=== PATIENT | female | born 1970 | race Caucasian/White ===

== ENCOUNTER → 2018-08-08 | Outpatient (CLI) | payer OTHER ==
[2018-08-08 09:03] LABS: Basophils # (A) 0.1 k/uL (0-0.2); Basophils % (A) 1 %; Eosinophils # (A) 0.3 k/uL (0-0.7); Eosinophils % (A) 5 %; HCT 42.6 % (34.0-46.0); HGB 13.5 gm/dL (11.4-16.0); Lymphocytes # (A) 2.2 k/uL (1.0-4.8); Lymphocytes % (A) 29 %; MCH 29.2 pg (25.0-35.0); MCHC 31.7 g/dL (31.0-37.0); MCV 91.9 fL (80.0-100.0); Mean Platelet Volume 8.2; Monocytes # (A) 0.6 k/uL (0-1.0); Monocytes % (A) 8 %; Neutrophils # (A) 4.1 k/uL (1.3-7.7); Neutrophils % (A) 55 %; Platelet Count 190 k/uL (150-450); RBC 4.63 m/uL (3.80-5.40); RDW 13.8 % (11.5-15.5); WBC 7.4 k/uL (3.8-10.6)
== END | disposition home or self-care (01) ==
LOC: LABPAT 08:15
PROVIDERS: ATTEND Obstetrics & Gynecology
DX: Z01.818 Encounter for other preprocedural examination (principal); I10 Essential (primary) hypertension; N92.0 Excessive and frequent menstruation with regular cycle; N84.0 Polyp of corpus uteri; Z01.812 Encounter for preprocedural laboratory examination
CPT/HCPCS: 36415; 85025; 93005

== ENCOUNTER 2018-08-24 07:51 | Day surgery (SDC) | payer OTHER ==
[2018-08-14 11:17] VITALS: BMI 36.6
--- NOTE | 2018-08-20 11:40 | HP ---
HISTORY AND PHYSICAL DATE OF SURGERY: 08/24/2018 This is a 48-year-old white female 2, para 2-0-0-2 who presents for NovaSure endometrial ablation for heavy crampy menses. Endometrial biopsy in the office revealed benign tissue, with fragments of endometrial polyps. For this reason, she is electing D and C and polypectomy as well. She has had a previous tubal ligation. Menses are long, and heavy. She uses [id number] medications as needed for cramping. PAST MEDICAL HISTORY: Significant for hypertension. PAST SURGICAL HISTORY: sections x2, colposcopy in the office, tubal ligation. CURRENT MEDICATIONS: Metoprolol daily. ALLERGIES: None known. FAMILY HISTORY: Significant for hyperlipidemia and diabetes. SOCIAL HISTORY: Patient is . She has never been a smoker. She works at a local [employer]. PHYSICAL EXAMINATION: This is a pleasant white female who is 5 feet 5 inches, 231 pounds, BMI of 38, blood pressure 120/80. HEENT exam reveals no thyromegaly, good dentition, no obvious lymphadenopathy. Chest is clear to auscultation in all rodrigues anteriorly and posteriorly. Cardiac exam reveals regular rate and rhythm with no murmur, click, or rub. Abdomen is soft, moderately obese, active bowel sounds, nontender. The breast exam reveals breasts to be bilaterally symmetric to inspection, no skin dimpling, nipple discharge, or axillary adenopathy. Extremities reveal no edema, good peripheral pulses. On pelvic exam, the cervix is long and closed, recent colposcopic evaluation is consistent with low-grade MALINDA. Uterus is small, mobile, anteverted, anteflexed, nontender and smooth. Adnexa are negative to bilateral palpation. Rectal exam reveals good tone, FIT negative stool. IMPRESSION: Hypermenorrhea and dysmenorrhea, office endometrial sampling consistent with benign endometrial polyps. PLAN: We will proceed with hysteroscopy, D and C, polypectomy, and NovaSure endometrial ablation. The risks, benefits, and alternatives have all been discussed in detail. The patient understands the risks of anesthesia as well, aspiration, or nerve damage. Perforation or damage to the cervix, uterus, or any pelvic or abdominal organs is also discussed in detail. Patient understands the risks and is choosing to proceed as above. MMODL / IJN: [id number] /
[~2018-08-24 07:51] MED LIST: DEXAMETHASONE SOD PHOSPHATE 10 MG/ML 1 ML VIAL IV ONE; HYDROmorphone 0.5 MG/0.5 ML SYRINGE IVP PRN; LACTATED RINGERS 1,000 ML IV SCH; MIDAZOLAM (PF) 2 MG/2 ML VIAL IV PRN; ONDANSETRON 4 MG/2 ML VIAL IVP ONE; Pre Op ABX Message 1 EACH MISC MISCELLANE ONE; SCOPOLAMINE 1.5MG/72HR PATCH TRANSDERM ONE
[2018-08-24] MEDS ORDERED: LIDOCAINE 1% 20 ML VIAL (10MG/ML) FOR IV START INTRADERMA ONE (08:20)
[2018-08-24] MEDS ORDERED: PROPOFOL 10 MG/ML 20 ML VIAL IV ONE (09:24)
[2018-08-24] MEDS ORDERED: fentaNYL (PF) 50 MCG/ML 2 ML AMP ONE (09:24)
[2018-08-24] MEDS ORDERED: MIDAZOLAM 2 MG/2 ML VIAL ONE (09:24)
[2018-08-24] MEDS ORDERED: LIDOCAINE 1% INJ 10MG/ML (20 ML MDV) ONE (09:24)
[2018-08-24] MEDS ORDERED: KETOROLAC 30 MG/ML 1 ML VIAL ONE (09:24)
--- NOTE | 2018-08-24 10:01 | P.OP ---
Date of Procedure: 08/24/18 Preoperative Diagnosis: Menorrhagia, endometrial polyps Postoperative Diagnosis: Same, multiple endometrial polyps Procedure(s) Performed: Hysteroscopy, dilatation and curettage, polypectomy, NovaSure endometrial ablation Anesthesia: ORQUIDEA Surgeon: Leia Veronica Power And Recovery Superintendent #1: Stated None Estimated Blood Loss (ml): 10 IV fluids (ml): 500 Urine output (ml): 100 Pathology: other (Endometrial curettings and polyps) Condition: stable Disposition: PACU Description of Procedure: Patient is brought to the [facility] and suite where a general anesthetic is administered. She's placed in the dorsal lithotomy position. Urine hCG is negative. The appropriate timeout is performed to assure proper patient and procedural identification. Examination under anesthesia reveals a small anteverted uterus, adnexa negative bilaterally. Perineal body, cervix and vagina are all prepped and draped in usual sterile fashion. Bladder is drained for approximately 100 mL of clear yellow urine. Weighted speculum was placed into the vagina. Anterior lip of the cervix is grasped with a double-tooth tenaculum. Uterus sounds to a depth of 10 cm in the anteverted position. The cervix is gently and systematically dilated using Hanks dilators. Hysteroscope was introduced and fluid is infused into the cavity thereby distending the cavity. Inspection of the cavity reveals multiple small benign-appearing endometrial polyps. Hysteroscope was removed. Medium sharp curette is used and the polyps are removed and visualized. Polyp forceps are also used to assure that the cavity is completely evacuated. Hysteroscope was once again placed and the cavity at pierced to be clear. NovaSure wand is then placed and seated properly. Uterine length of 6.5 cm, width of 4.0 cm is calibrated. With a power of 157 W. for time of 44 seconds procedure is carried out. When the machine shuts off the wand is reduced and removed. Hysteroscope was once again placed and the cavity is noted to be uniformly blanched. All sponge needle and enhancement counts are correct. Toradol is given prior to leaving the operative suite. Vagina is clean and dry. Patient is brought back to recovery room in very good condition with stable vital signs including blood pressure 108/73, pulse 69. Patient will follow-up with me in the office in 2 weeks.
[2018-08-24 10:10] VITALS: TEMP 96.9
[2018-08-24 10:22] VITALS: RESP 18
[2018-08-24] MEDS ORDERED: LACTATED RINGERS 1,000 ML IV ONE (10:40)
[2018-08-24 11:18] VITALS: BP 132/85; PULSE 72
== END 2018-08-24 11:38 | disposition home or self-care (01) ==
LOC: OR 07:51
PROVIDERS: ATTEND Obstetrics & Gynecology
DX: N84.0 Polyp of corpus uteri (principal); N92.0 Excessive and frequent menstruation with regular cycle; I10 Essential (primary) hypertension; Z79.899 Other long term (current) drug therapy; Z98.51 Tubal ligation status; E66.9 Obesity, unspecified; Z68.38 Body mass index [BMI] 38.0-38.9, adult
CPT/HCPCS: 81025; 88305; 58563; J2250; J1100; J2405; J2001; J3010; J1885; J2704

== ENCOUNTER 2021-07-04 10:54 | Day surgery (SDC) | payer OTHER ==
[2021-07-03 08:23] VITALS: BMI 37.9
[~2021-07-04 10:54] MED LIST changes: -DEXAMETHASONE SOD PHOSPHATE 10 MG/ML 1 ML VIAL IV ONE; +DEXAMETHASONE SOD PHOSPHATE 4 MG/ML 1 ML VIAL IV ONE; +DEXAMETHASONE SOD PHOSPHATE 4 MG/ML 1 ML VIAL IV PRN; +FAMOTIDINE 20 MG/2 ML VIAL IV PRN; +LIDOCAINE 1% (10MG/ML) FOR IV START INTRADERMA PRN; -MIDAZOLAM (PF) 2 MG/2 ML VIAL IV PRN; +MIDAZOLAM 2 MG/2 ML VIAL IV PRN; +ONDANSETRON 4 MG/2 ML VIAL IVP PRN; -Pre Op ABX Message 1 EACH MISC MISCELLANE ONE; -SCOPOLAMINE 1.5MG/72HR PATCH TRANSDERM ONE
[2021-07-04 11:07] VITALS: TEMP 97.8
[2021-07-04] MEDS ORDERED: LACTATED RINGERS 1,000 ML IV ONE (11:07)
[2021-07-04] MEDS ORDERED: LIDOCAINE 1% INJ 10MG/ML (20 ML MDV) ONE (12:23)
[2021-07-04] MEDS ORDERED: SUCCINYLCHOLINE CHLORIDE 100 MG/5 ML SYR IV ONE (12:23)
[2021-07-04] MEDS ORDERED: MIDAZOLAM 2 MG/2 ML VIAL ONE (12:23)
[2021-07-04] MEDS ORDERED: PROPOFOL 10 MG/ML 20 ML VIAL IV ONE (12:23)
[2021-07-04] MEDS ORDERED: HYDROmorphone (PF) 1 MG/ML ONE (12:23)
[2021-07-04] MEDS ORDERED: fentaNYL (PF) 50 MCG/ML 2 ML AMP ONE (12:23)
--- NOTE | 2021-07-04 13:13 | P.OP ---
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 This did not improve with medical management. Flexible laryngoscopy revealed the white exophytic lesion of the posterior aspect of the right true vocal cord Operative Findings: Exophytic white leukoplakic lesion arising from the right true vocal cord and confined to the vocal cord itself which started at the mid true vocal cord and went posteriorly but not to the arytenoid. This was approximately 8 mm in length and 5 mm in width and protruded approximately 3 mm at most Description of Procedure: Patient was brought in the operative suite and placed in a supine position. Patient underwent induction of general anesthesia with oral endotracheal intubation without difficulty with a #5 endotracheal tube. The patient was prepped and draped in usual aseptic fashion. Tooth guard was placed and systematic evaluation with direct laryngoscopy was performed with evaluation of the base of tongue vallecula both piriform sinuses post cricoid area and endolarynx. With the larynx in good visualization the laryngoscope was placed in suspension and the Zeiss microscope was brought into position to evaluate the vocal cords further. The right vocal cord lesion was then excised from the underlying tissue grossly entirely using microdissection technique with microcup forceps and microscissors leaving the lamina propria intact. This was sent for permanent section. Hemostasis was gained spontaneously. The laryngoscope and tooth guard were removed. The patient was then allowed to emerge from anesthesia having tolerated procedure well, was extubated in the operating suite and transferred to postop recovery area in satisfactory condition
[2021-07-04 14:22] VITALS: RESP 16
[2021-07-04 14:24] VITALS: BP 134/84; PULSE 85
[2021-07-04] MEDS ORDERED: ACETAMINOPHEN TAB 500 MG TAB PO ONE (14:38)
[2021-07-04] MEDS ORDERED: ACETAMINOPHEN TAB 500 MG TAB ONE (14:39)
== END 2021-07-04 14:35 | disposition home or self-care (01) ==
LOC: OR 10:54
PROVIDERS: ATTEND Otolaryngology
DX: J38.3 Other diseases of vocal cords (principal); J38.2 Nodules of vocal cords; I10 Essential (primary) hypertension; E78.5 Hyperlipidemia, unspecified; Z79.1 Long term (current) use of non-steroidal anti-inflammatories (NSAID); Z79.52 Long term (current) use of systemic steroids; Z79.899 Other long term (current) drug therapy; Z98.891 History of uterine scar from previous surgery; Z90.49 Acquired absence of other specified parts of digestive tract; Z98.51 Tubal ligation status; Z98.890 Other specified postprocedural states
CPT/HCPCS: 31536; 81025; J2250; J1100; J2405; J2001; J3010; J1170; J0330; J2704; 88305; 88342

== ENCOUNTER → 2022-04-09 | Outpatient (CLI) | payer OTHER ==
--- NOTE | 2022-04-09 09:04 | CT ---
EXAMINATION TYPE: CT soft tissue neck w con DATE OF EXAM: 04/09/2022 HISTORY: malignant neoplasm of glottis COMPARISON: Outside neck CT July 16, 2021 CT DLP: 520.6 mGycm. Automated Exposure Control for Dose Reduction was Utilized. TECHNIQUE: CT scan of the neck is performed with IV Contrast, patient injected with 70 mL of Isovue 300, axial images are obtained, coronal and sagittal reformatted images are reviewed. FINDINGS: Airway: No obvious suspicious mass. Airway appears patent. Parotid/submandibular glands: No gross abnormality seen. Carotid/Vascular Structures: No significant abnormality is seen. Osseous Structures: Mild to moderate disc space narrowing and mild spurring C5-C6 level redemonstrate d . Other: Collateral vessel or draining vein into the posterior right lower neck is redemonstrated. Ther e are some scattered prominent but subcentimeter lymph nodes throughout the neck bilaterally. No new or enlarging greater than 1.0 cm neck adenopathy. Prominent but subcentimeter lymph nodes in the ante rior superior mediastinum and near the thoracic inlet are redemonstrated. Nasal septum remains deviated to left of midline. IMPRESSION: No obvious mass or abnormal neck adenopathy to suggest recurrent neoplasm. No significan t change from prior outside images. Prior outside report not available for review at time of dictatio n.
== END | disposition home or self-care (01) ==
LOC: RADCTMAIN 07:56
PROVIDERS: ATTEND Radiology Radiation Oncology
DX: C32.0 Malignant neoplasm of glottis (principal)
CPT/HCPCS: 70491; Q9967

== ENCOUNTER → 2022-11-06 | Outpatient (CLI) | payer OTHER ==
--- NOTE | 2022-11-06 08:35 | CT ---
EXAMINATION TYPE: CT soft tissue neck w con DATE OF EXAM: 11/06/2022 COMPARISON: 04/09/2022 HISTORY: Throat pain and difficulty breathing. Hx of neck cancer. CT DLP: 792.7 mGycm CONTRAST: CT scan of the neck is performed with IV Contrast, patient injected with 100ml mL of Isovue 300. Contrast enhanced CT of the neck was performed from the skull base through the lung apices. AIRWAY: The supraglottic, glottic, and subglottic portions of the airway appear patent and free of mass. SALIVARY GLANDS: The submandibular and parotid glands are free of mass or inflammatory process. THYROID GLAND: No nodules or masses seen. LYMPH NODES: No adenopathy seen greater than 1cm. LUNG APICES: No nodule or mass is seen. OTHER: Vascular structures are patent. Collateral vasculature is noted throughout the right neck in the midline. Mild degenerative change of the cervical spine. No abscess seen. IMPRESSION: 1. No evidence for mass or abnormal adenopathy throughout the neck this time. 2. Prominent venous collaterals throughout the neck.
== END | disposition home or self-care (01) ==
LOC: RADCTMAIN 07:11
PROVIDERS: ATTEND Internal Medicine
DX: D49.1 Neoplasm of unspecified behavior of respiratory system (principal)
CPT/HCPCS: 70491; Q9967

== ENCOUNTER 2024-02-18 16:34 | Inpatient (IN) | payer OTHER ==
--- NOTE | 2024-02-18 17:25 | ED ---
SOB HPI - General Chief Complaint: Shortness of Breath Stated Complaint: ANSHUL-Transfer Time Seen by Provider: 02/18/24 16:59 Source: patient, RN notes reviewed Mode of arrival: ambulatory Limitations: no limitations - History of Present Illness Initial Comments: This is a 53-year-old female who presents to the emergency department for hemoptysis and shortness of breath. Patient presented to [facility] today for hemoptysis and shortness of breath that occurred about an hour before arrival. 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 States that she felt like she started to get sick with a cold 2 days ago. She saw her primary care provider with started on Augmentin and prednisone. However, symptoms continued to get worse. Workup at [facility] identified diffuse groundglass changes in the lungs concerning for infectious or inflammatory process such as pneumonitis. However, neoplastic process cannot be excluded. Imaging was also nondiagnostic for pulmonary embolism. Patient also noted to have an elevated troponin level at their facility. States that her chest feels sore from coughing, but it is not painful. She was ultimately transferred to this facility due to the irregularities on her imaging and history of cancer for a bronchoscopy and further pulmonary evaluation. MD Complaint: shortness of breath, cough - Related Data Home Medications Medication Instructions Recorded Confirmed Metoprolol Succinate (ER) [Toprol 50 mg PO DAILY 08/14/18 02/18/24 Xl] Triamterene-Hctz 37.5-25Mg 1 tab PO DAILY 08/14/18 02/18/24 [Maxzide 37.5-25] ALPRAZolam [Xanax] 0.5 mg PO BID PRN 02/18/24 02/18/24 Amoxic-Pot Clav 875-125Mg 1 tab PO BID 02/18/24 02/18/24 [Augmentin 875-125] Escitalopram [Lexapro] 20 mg PO DAILY 02/18/24 02/18/24 Omeprazole [PriLOSEC] 20 mg PO DAILY 02/18/24 02/18/24 Potassium Chloride ER [K-Dur 10] 10 meq PO DAILY 02/18/24 02/18/24 predniSONE [Deltasone] 40 mg PO DAILY 02/18/24 02/18/24 Allergies Allergy/AdvReac Type Severity Reaction Status Date / Time No Known Allergies Allergy Verified 02/18/24 17:50 Review of Systems ROS Statement: Those systems with pertinent positive or pertinent negative responses have been documented in the HPI. ROS Other: All systems not noted in ROS Statement are negative. Past Medical History Past Medical History: Hyperlipidemia, Hypertension History of Any Multi-Drug Resistant Organisms: None Reported Past Surgical History: Section, Cholecystectomy, Tubal Ligation, Uterine Ablation Additional Past Surgical History / Comment(s): C/S x2, Past Anesthesia/Blood Transfusion Reactions: No Reported Reaction Smoking Status: Never smoker - Past Family History Mother History Unknown: Yes Family Medical History: Deep Vein Thrombosis (DVT) General Exam Limitations: no limitations General appearance: alert, in no apparent distress Head exam: Present: atraumatic, normocephalic, normal inspection Respiratory exam: Present: normal lung sounds bilaterally. Absent: respiratory distress, wheezes, rales, rhonchi, stridor Cardiovascular Exam: Present: regular rate, normal rhythm, normal heart sounds. Absent: systolic murmur, diastolic murmur, rubs, gallop, clicks Neurological exam: Present: alert, oriented X3, CN II-XII intact Psychiatric exam: Present: normal affect, normal mood Skin exam: Present: warm, dry, intact, normal color. Absent: rash Course Vital Signs 02/18/24 02/18/24 02/18/24 17:21 17:50 18:55 Temperature 98.1 F 98.3 F Pulse Rate 90 94 Respiratory 22 22 20 Rate Blood Pressure 118/80 110/78 O2 Sat by Pulse 98 93 L Oximetry Medical Decision Making - Medical Decision Making This is a 53 year old female who presents to the emergency department for shortness of breath and hemoptysis. Was pt. sent in by a medical professional or institution? @ -No Did you speak to anyone other than the patient for history? @ -EMS and information from [facility] provided supplemental history. Did you review nursing and triage notes? @ -Yes, and I agree, it is accurate with regards to the patient's symptoms. Were old charts reviewed? @ -CT soft tissue neck with contrast: bilateral fairly diffuse pulmonary findings that may be on the basis of diffuse infectious etiology/pneumonia/pneumonitis. They advised follow-up to resolution to exclude underlying neoplastic process. -CTA of the thorax: diffuse groundglass and micronodular changes involving the lungs with scattered pulmonary nodules. This would favor infectious or inflammatory etiology such as pneumonitis. Neoplastic process cannot be excluded. This was nondiagnostic for assessment of pulmonary embolism. WBC: 15.76 Troponin: 0.153, repeat 0.510 Differential Diagnosis? @ -Differential Dyspnea: Coronary syndrome, arrhythmia, tamponade, asthma, COPD, pulmonary embolism, pneumonia, pneumothorax, pulmonary effusion, anaphylaxis, diabetic ketoacidosis, flailed chest, pulmonary contusion, diaphragmatic rupture, anemia, neuromuscular, this is not meant to be an all-inclusive list. EKG interpreted by me (3pts min.)? @ -EKG interpreted by me demonstrating the following: Sinus rhythm. Ventricular rate 89 bpm, CO interval 173 ms, QRS duration 106 ms, QTc 441 ms. X-rays interpreted by me (1pt min.)? @ -Not obtained CT interpreted by me (1pt min.)? @ -Not obtained U/S interpreted by me (1pt. min.)? @ -Not obtained What testing was considered but not performed? (CT, X-rays, U/S, labs)? Why? @ -None What meds were considered but not given? Why? @ -None Did you discuss the management of the patient with other professionals? @ -Yes, Dr. Nguyen, who accepts the patient for admission. Did you reconcile home meds? @ -Yes Was smoking cessation discussed for >3mins.? @ -No Was critical care preformed (if so, how long)? @ -No Were there social determinants of health that impacted care today? How? (Homelessness, low income, unemployed, alcoholism, drug addiction, kramer sportation, low edu. Level, literacy, decrease access to med. care, care home, rehab)? @ -No Was there de-escalation of care discussed even if they declined? (Discuss DNR or withdrawal of care, Hospice)? @ -No What co-morbidities impacted this encounter? (DM, HTN, Smoking, COPD, CAD, Cancer, CVA, Hep., AIDS, mental health diagnosis, sleep apnea, morbid obesity)? @ -HLD, HTN, hx of vocal cord cancer Was patient admitted / discharged? @ -Admitted. Records sent with the patient from [facility] reviewed. Lab work demonstrates leukocytosis and initial troponin was elevated at 0.153. Repeat had increased to 0.510. Imaging revealed diffuse pulmonary changes suggestive of infectious versus inflammatory etiology. However, neoplasm cannot be ruled out. Repeat lab work here demonstrates increased white blood cell count of 18.3. Lactic acid elevated at 2.4 and D-dimer elevated 1.56. CTA at [facility] was nondiagnostic for PE. Given that this was already done today it could not be repeated. A VQ scan could be considered if admitting team feels it is appropriate. Given the findings of pneumonitis with increasing white blood cell count, patient started on pneumonia protocol with ceftriaxone and azithromycin. Blood and sputum cultures obtained. I did order a Cepheid swab the patient arrived, which did later return positive for COVID-19. They did not swab her at [facility]. Additionally, elevated troponin discussed with Dr. Nguyen, who advised avoiding a repeat at this time, as there was no reason for them to order a troponin at [facility] to begin with as patient is not exhibiting any chest pain and there are no concerning EKG changes. Patient admitted to medicine for hemoptysis and shortness of breath with pulmonology on consult for possible bronchoscopy due to possible underlying neoplastic changes on imaging. Patient kept NPO after midnight in the event of intervention tomorrow. Case discussed with ED attending Dr. Lance. Undiagnosed new problem with uncertain prognosis? @ -None Drug Therapy requiring intensive monitoring for toxicity (Heparin, Nitro, Insulin, Cardizem)? @ -None Were any procedures done? @ -None Diagnosis/symptom? @ -Hemoptysis, shortness of breath, pneumonitis Acute, or Chronic, or Acute on Chronic? @ -Acute Uncomplicated (without systemic symptoms) or Complicated (systemic symptoms)? @ -Complicated Side effects of treatment? @ -None Exacerbation, Progression, or Severe Exacerbation] @ -Not applicable Poses a threat to life or bodily function? @ -Yes, can lead to respiratory failure and - Lab Data Result diagrams: 02/18/24 17:54 02/18/24 17:54 Lab Results 02/18/24 02/18/24 02/18/24 Range/Units 17:54 17:54 17:54 WBC 18.3 H (3.8-10.6) k/uL RBC 4.92 (3.80-5.40) m/uL Hgb 15.3 (11.4-16.0) gm/dL Hct 46.7 H (34.0-46.0) % MCV 95.0 (80.0-100.0) fL MCH 31.1 (25.0-35.0) pg MCHC 32.7 (31.0-37.0) g/dL RDW 13.1 (11.5-15.5) % Plt Count 216 (150-450) k/uL MPV 8.4 Neutrophils % 88 % Lymphocytes % 5 % Monocytes % 6 % Eosinophils % 0 % Basophils % 0 % Neutrophils # 16.0 H (1.3-7.7) k/uL Lymphocytes # 1.0 (1.0-4.8) k/uL Monocytes # 1.0 (0-1.0) k/uL Eosinophils # 0.0 (0-0.7) k/uL Basophils # 0.0 (0-0.2) k/uL Sodium 136 L (137-145) mmol/L Potassium 4.4 (3.5-5.1) mmol/L Chloride 105 (98-107) mmol/L Carbon Dioxide 21 L (22-30) mmol/L Anion Gap 10 mmol/L BUN 16 (7-17) mg/dL Creatinine 0.59 (0.52-1.04) mg/dL Est GFR (CKD-EPI)AfAm >90 (>60 ml/min/1.73 sqM) Est GFR (CKD-EPI)NonAf >90 (>60 ml/min/1.73 sqM) Glucose 137 H (74-99) mg/dL Plasma Lactic Acid Jam 2.4 H* (0.7-2.0) mmol/L Calcium 9.0 (8.4-10.2) mg/dL Magnesium 1.8 (1.6-2.3) mg/dL Total Bilirubin 0.9 (0.2-1.3) mg/dL AST 40 H (14-36) U/L ALT 30 (4-34) U/L Alkaline Phosphatase 58 (38-126) U/L C-Reactive Protein 1.1 H (<1.0) mg/dL Total Protein 7.4 (6.3-8.2) g/dL Albumin 4.1 (3.5-5.0) g/dL Influenza Type A (PCR) (Not Detectd) Influenza Type B (PCR) (Not Detectd) RSV (PCR) (Not Detectd) SARS-CoV-2 (PCR) (Not Detectd) 02/18/24 Range/Units 17:54 WBC (3.8-10.6) k/uL RBC (3.80-5.40) m/uL Hgb (11.4-16.0) gm/dL Hct (34.0-46.0) % MCV (80.0-100.0) fL MCH (25.0-35.0) pg MCHC (31.0-37.0) g/dL RDW (11.5-15.5) % Plt Count (150-450) k/uL MPV Neutrophils % % Lymphocytes % % Monocytes % % Eosinophils % % Basophils % % Neutrophils # (1.3-7.7) k/uL Lymphocytes # (1.0-4.8) k/uL Monocytes # (0-1.0) k/uL Eosinophils # (0-0.7) k/uL Basophils # (0-0.2) k/uL Sodium (137-145) mmol/L Potassium (3.5-5.1) mmol/L Chloride (98-107) mmol/L Carbon Dioxide (22-30) mmol/L Anion Gap mmol/L BUN (7-17) mg/dL Creatinine (0.52-1.04) mg/dL Est GFR (CKD-EPI)AfAm (>60 ml/min/1.73 sqM) Est GFR (CKD-EPI)NonAf (>60 ml/min/1.73 sqM) Glucose (74-99) mg/dL Plasma Lactic Acid Jam (0.7-2.0) mmol/L Calcium (8.4-10.2) mg/dL Magnesium (1.6-2.3) mg/dL Total Bilirubin (0.2-1.3) mg/dL AST (14-36) U/L ALT (4-34) U/L Alkaline Phosphatase (38-126) U/L C-Reactive Protein (<1.0) mg/dL Total Protein (6.3-8.2) g/dL Albumin (3.5-5.0) g/dL Influenza Type A (PCR) Not Detected (Not Detectd) Influenza Type B (PCR) Not Detected (Not Detectd) RSV (PCR) Not Detected (Not Detectd) SARS-CoV-2 (PCR) Detected A (Not Detectd) - Radiology Data Radiology results: report reviewed, image reviewed Disposition Clinical Impression: Hemoptysis, Shortness of breath, Pneumonitis Disposition: ADMITTED IP TO THIS HOSP
[2024-02-18] MEDS ORDERED: PNEUMONIA PROTOCOL UTILIZED 1 EACH MISC PO PRN (17:30)
[2024-02-18] MEDS ORDERED: HEPARIN SODIUM 1,000 UN/ML (10ML VL) IV PRN (18:08)
[2024-02-18] MEDS: SODIUM CHLORIDE 0.9% 1,000 ML IV STA (18:11)
[2024-02-18] MEDS ORDERED: HYDROcodone/APAP 5-325MG 1 EACH TAB PO PRN (18:15)
[2024-02-18] MEDS ORDERED: HEPARIN SOD,PORK IN 0.45% NACL 25,000 UNIT in 0.45% NACL 1 250ML.BAG IV SCH (18:15)
[2024-02-18] MEDS ORDERED: NALOXONE 0.4 MG/ML 1 ML VIAL IV PRN (18:15)
[2024-02-18] MEDS ORDERED: MORPHINE SULFATE 4 MG/ML SYRINGE IV PRN (18:15)
[2024-02-18 18:46] LABS: ALT 30 U/L (4-34); African American GFR (CKD) >90 (>60 ml/min/1.73 sqM); Albumin 4.1 g/dL (3.5-5.0); Anion Gap 10 mmol/L; Blood Urea Nitrogen 16 mg/dL (7-17); Carbon Dioxide 21 mmol/L (22-30); Chloride 105 mmol/L (98-107); Glucose 137 mg/dL (74-99); Magnesium 1.8 mg/dL (1.6-2.3); Non-African American GFR(CKD) >90 (>60 ml/min/1.73 sqM); Sodium 136 mmol/L (137-145); Total Bilirubin 0.9 mg/dL (0.2-1.3); Total Protein 7.4 g/dL (6.3-8.2)
[2024-02-18 19:01] LABS: AST 40 U/L (14-36); Basophils % (A) 0 %; Eosinophils % (A) 0 %; HCT 46.7 % (34.0-46.0); HGB 15.3 gm/dL (11.4-16.0); Lymphocytes % (A) 5 %; MCH 31.1 pg (25.0-35.0); MCHC 32.7 g/dL (31.0-37.0); Mean Platelet Volume 8.4; Monocytes % (A) 6 %; Neutrophils % (A) 88 %; Platelet Count 216 k/uL (150-450); Potassium 4.4 mmol/L (3.5-5.1); RBC 4.92 m/uL (3.80-5.40); RDW 13.1 % (11.5-15.5); WBC 18.3 k/uL (3.8-10.6)
[2024-02-18 19:02] LABS: Alkaline Phosphatase 58 U/L (38-126)
[2024-02-18 19:15] LABS: C Reactive Protein 1.1 mg/dL (<1.0)
[2024-02-18] MEDS: HEPARIN SODIUM 1,000 UN/ML (10ML VL) IV ONE (19:25)
[2024-02-18] MEDS: ONDANSETRON 4 MG/2 ML VIAL IVP PRN (20:18)
[2024-02-18 20:53] LABS: INR 0.9 (<1.2); Prothrombin Time 10.5 sec (10.0-12.5)
[2024-02-18 20:55] LABS: Partial Thromboplastin Time 21.7 sec (22.0-30.0)
[2024-02-18] MEDS: AZITHROMYCIN 500 MG in SODIUM CHLORIDE 0.9% 250 ML IVPB STA (21:38)
[2024-02-18] MEDS: SODIUM CHLORIDE 0.9% 1,000 ML IV ONE (23:25)
[2024-02-19] MEDS: ALBUTEROL HFA INHALER INHALATION STA (04:13)
[2024-02-19] MEDS: AZITHROMYCIN 500 MG TAB PO SCH (08:50)
[2024-02-19] MEDS: ESCITALOPRAM 20 MG TAB PO SCH (08:51)
[2024-02-19] MEDS: METOPROLOL SUCCINATE (ER) 50 MG TAB.ER.24H PO SCH (08:52)
[2024-02-19] MEDS: PANTOPRAZOLE 40 MG TABLET PO SCH (08:53)
[2024-02-19] MEDS: POTASSIUM CHLORIDE ER 10 MEQ TAB.ER.PRT PO SCH (08:53)
[2024-02-19] MEDS: predniSONE 20 MG TAB PO SCH (08:53)
[2024-02-19] MEDS: TRIAMTERENE-HCTZ 37.5-25MG 1 EACH CAP PO SCH (09:00)
[2024-02-19] MEDS ORDERED: PANTOPRAZOLE 40 MG/10 ML VIAL IV SCH (09:00)
[2024-02-19] MEDS: methylPREDNISolone SOD SUCCI 125 MG/2 ML VIAL IV SCH (11:58)
--- NOTE | 2024-02-19 16:55 | P.HPIM ---
History of Present Illness H&P Date: 02/19/24 Chief Complaint: Coughing up blood Pleasant 53-year-old patient follows with Dr. Cervantes. [employer]/Mabel Rick Patient was diagnosed with vocal cord cancer back in 2021. Had radiation treatment and local surgery. She did follow-up with /ENT at [facility] and [place]. Following the radiation she has had trouble narrowing of the upper airway. 2 weeks ago she developed cold-like symptoms. With mucus. Cough. Shortness of breath. Voice became hoarse. Yesterday she started coughing up some blood. Also had chills. She went to see her family doctor's office. She was put on prednisone and Augmentin. She did present to [facility] yesterday evening for which she was transferred here because of hemoptysis and possible need for bronchoscopy. She also tested positive for COVID. In the ER patient's at the bedside. Review of systems: GEN.: Tired chills EYES: None HEENT: None NECK: None RESPIRATORY: [As above CARDIOVASCULAR: None GASTROINTESTINAL: None GENITOURINARY: None MUSCULOSKELETAL: None LYMPHATICS: None HEMATOLOGICAL: None PSYCHIATRY: None NEUROLOGICAL: None Social history: Does not smoke. Work at the [employer]. Alcohol occasionally. Physical examination: VITAL SIGNS: 98, 90, 22, 118 x 80, 98% on 3 L GENERAL: BMI 40.8, reclining bed awake a bit tired. EYES: Pupils equal. Conjunctiva uma l. HEENT: External appearance of nose and ears normal, oral cavity grossly normal. NECK: JVD not raised; masses not palpable. HEART: First and second heart sounds are normal; no edema. LUNGS: Respiratory rate increased, few scattered crackles. ABDOMEN: Soft, nontender, liver spleen not palpable, no masses palpable. PSYCH: Alert and oriented x3; mood and affect uma l. MUSCULOSKELETAL:No Clubbing/cyanosis;muscles-grossly intact NEUROLOGICAL: Cranial nerves grossly intact; no facial asymmetry, power and sensation grossly intact. LYMPHATICS: No lymph nodes palpable in the axilla and neck INVESTIGATIONS, reviewed in the clinical context: February 18, 2024: White count 18.3 hemoglobin 15.3 platelets 216 sodium 136 potassium 4.4 creatinine 0.59 Lactic acid 2.4, 2.9 COVID-19 PCR: Detected EKG tracing personally reviewed by me-normal sinus rhythm Testing from [facility]: CT scan chest: Scattered pulmonary nodules. Groundglass appearance Assessment and plan: -Acute hemoptysis. In the setting of acute COVID-19 pneumonitis. This well could be a manifestation of COVID-19. But given history of vocal cord cancer and nodules in both the lungs underlying malignancy needs to be ruled out Pulmonary consulted -Acute COVID-19, pneumonitis. No hypoxia. -Morbid obesity BMI 40.8 Weight loss measures -GERD Prilosec -Depression, anxiety Lexapro. Xanax as needed -Essential hypertension Maxide. Toprol-XL -Full code Care was discussed with the patient and her at the bedside. Pulmonary is consulted. Await their input. Past Medical History Past Medical History: Hyperlipidemia, Hypertension History of Any Multi-Drug Resistant Organisms: None Reported Past Surgical History: Section, Cholecystectomy, Tubal Ligation, Uterine Ablation Additional Past Surgical History / Comment(s): C/S x2, Past Anesthesia/Blood Transfusion Reactions: No Reported Reaction Smoking Status: Never smoker - Past Family History Mother History Unknown: Yes Family Medical History: Deep Vein Thrombosis (DVT) Medications and Allergies Home Medications Medication Instructions Recorded Confirmed Type Metoprolol Succinate (ER) [Toprol 50 mg PO DAILY 08/14/18 02/18/24 History Xl] Triamterene-Hctz 37.5-25Mg 1 tab PO DAILY 08/14/18 02/18/24 History [Maxzide 37.5-25] ALPRAZolam [Xanax] 0.5 mg PO BID PRN 02/18/24 02/18/24 History Amoxic-Pot Clav 875-125Mg 1 tab PO BID 02/18/24 02/18/24 History [Augmentin 875-125] Escitalopram [Lexapro] 20 mg PO DAILY 02/18/24 02/18/24 History Omeprazole [PriLOSEC] 20 mg PO DAILY 02/18/24 02/18/24 History Potassium Chloride ER [K-Dur 10] 10 meq PO DAILY 02/18/24 02/18/24 History predniSONE [Deltasone] 40 mg PO DAILY 02/18/24 02/18/24 History Allergies Allergy/AdvReac Type Severity Reaction Status Date / Time No Known Allergies Allergy Verified 02/18/24 17:50 Physical Exam Vitals: Vital Signs Temp Pulse Resp BP Pulse Ox 02/19/24 08:48 98.9 F 91 20 94/61 100 02/19/24 05:48 99.1 F 80 20 107/80 98 02/19/24 04:48 85 16 97 02/18/24 18:55 98.3 F 94 20 110/78 93 L 02/18/24 17:50 22 02/18/24 17:21 98.1 F 90 22 118/80 98 Intake and Output 02/18/24 02/19/24 02/19/24 22:59 06:59 14:59 Other: Weight 111.13 kg Results CBC & Chem 7: 02/18/24 17:54 02/18/24 17:54 Labs: Abnormal Lab Results - Last 24 Hours (Table) 02/18/24 02/18/24 02/18/24 Range/Units 17:54 17:54 17:54 WBC 18.3 H (3.8-10.6) k/uL Hct 46.7 H (34.0-46.0) % Neutrophils # 16.0 H (1.3-7.7) k/uL APTT (22.0-30.0) sec D-Dimer (<0.60) mg/L FEU Sodium 136 L (137-145) mmol/L Carbon Dioxide 21 L (22-30) mmol/L Glucose 137 H (74-99) mg/dL Plasma Lactic Acid Jam 2.4 H* (0.7-2.0) mmol/L AST 40 H (14-36) U/L C-Reactive Protein 1.1 H (<1.0) mg/dL SARS-CoV-2 (PCR) (Not Detectd) 02/18/24 02/18/24 02/18/24 Range/Units 17:54 20:20 21:22 WBC (3.8-10.6) k/uL Hct (34.0-46.0) % Neutrophils # (1.3-7.7) k/uL APTT 21.7 L (22.0-30.0) sec D-Dimer 1.56 H (<0.60) mg/L FEU Sodium (137-145) mmol/L Carbon Dioxide (22-30) mmol/L Glucose (74-99) mg/dL Plasma Lactic Acid Jam 2.9 H* (0.7-2.0) mmol/L AST (14-36) U/L C-Reactive Protein (<1.0) mg/dL SARS-CoV-2 (PCR) Detected A (Not Detectd) 02/19/24 Range/Units 00:44 WBC (3.8-10.6) k/uL Hct (34.0-46.0) % Neutrophils # (1.3-7.7) k/uL APTT (22.0-30.0) sec D-Dimer (<0.60) mg/L FEU Sodium (137-145) mmol/L Carbon Dioxide (22-30) mmol/L Glucose (74-99) mg/dL Plasma Lactic Acid Jam 2.2 H* (0.7-2.0) mmol/L AST (14-36) U/L C-Reactive Protein (<1.0) mg/dL SARS-CoV-2 (PCR) (Not Detectd)
--- NOTE | 2024-02-19 19:30 | P.CNPUL ---
History of Present Illness Consult date: 02/19/24 Reason for consult: dyspnea History of present illness: This is a 53-year-old female patient with known history of vocal cord malignancy diagnosed by ENT and the patient was treated by radiation therapy 2 years back and since her treatment, the patient has developed ongoing difficulties with shortness of breath and stridor. 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 The patient has been followed up by Dr. Chao and Dr. Leonardo. The patient started getting sick few days back. In fact her symptoms started approximately a week ago. She had flulike symptoms of increased congestion, shortness of breath, cold, chills, fever, increasing hoarseness, increasing shortness of breath and for that reason, she was seen at her family doctor's office and she was given a course of Augmentin and prednisone. Subsequently, she started having episodes hemoptysis and the patient accordingly was brought into the emergency department [facility]. CAT scan of the chest showed bilateral groundglass pulm infiltrates consistent with atypical pneumonia and the patient checked. Positive for COVID- 19 infection. I was able to witness the mucus that the patient was coughing earlier. This was quite bloody consistent with hemoptysis. No epistaxis. Her white cell count is 18.3 with a hemoglobin 15.3 and a platelet count of 216. D- dimer is 1.56. Normal coagulation profile. Initial lactic acid was at 2.9 dropped down to 1.9. The BUN is 16 with a creatinine 0.59 and a sodium levels at 136 with a potassium level of 4.4 and a serum bicarb is at 21. LFTs are normal. The rest of the viral screen came back negative. The patient is currently on O2 at room air oxygen with a pulse ox of 98%. Review of Systems Constitutional: Reports fatigue, Reports fever Eyes: denies as per HPI, denies blurred vision, denies bulging eye, denies decreased vision, denies diplopia, denies discharge, denies dry eye, denies irritation, denies itching, denies pain, denies photophobia, denies loss of peripheral vision, denies loss of vision, denies tunnel vision/blind spots Ears: deny: decreased hearing, ear discharge, earache, tinnitus Ears, nose, mouth and throat: Reports as per HPI, Reports hoarseness Breasts: absent: as per HPI, change in shape, gynecomastia, masses, nipple discharge, pain, skin changes, swelling Cardiovascular: Reports as per HPI Respiratory: Reports as per HPI, Reports cough, Reports dyspnea, Reports hemoptysis Gastrointestinal: Reports as per HPI Genitourinary: Reports as per HPI Menstruation: Reports as per HPI Musculoskeletal: Reports as per HPI Musculoskeletal: absent: ankle pain, ankle stiffness, ankle swelling, as per HPI, elbow pain, elbow stiffness, elbow swelling, foot pain, foot stiffness, foot swelling, hand pain, hand stiffness, hand swelling, hip pain, hip stiffness, hip swelling, knee pain, knee stiffness, knee swelling, shoulder pain, shoulder stiffness, shoulder swelling, wrist pain, wrist stiffness, wrist swelling Integumentary: Reports as per HPI Neurological: Reports as per HPI Psychiatric: Reports as per HPI Endocrine: Reports as per HPI Hematologic/Lymphatic: Reports as per HPI Allergic/Immunologic: Reports as per HPI Past Medical History Past Medical History: Hyperlipidemia, Hypertension Additional Past Medical History / Comment(s): vocal cord squamous cell cancer, 2021 History of Any Multi-Drug Resistant Organisms: None Reported Past Surgical History: Section, Cholecystectomy, Tubal Ligation, Uterine Ablation Additional Past Surgical History / Comment(s): C/S x2, Past Anesthesia/Blood Transfusion Reactions: No Reported Reaction Smoking Status: Never smoker - Past Family History Mother History Unknown: Yes Family Medical History: Deep Vein Thrombosis (DVT) Medications and Allergies Home Medications Medication Instructions Recorded Confirmed Type Metoprolol Succinate (ER) [Toprol 50 mg PO DAILY 08/14/18 02/18/24 History Xl] Triamterene-Hctz 37.5-25Mg 1 tab PO DAILY 08/14/18 02/18/24 History [Maxzide 37.5-25] ALPRAZolam [Xanax] 0.5 mg PO BID PRN 02/18/24 02/18/24 History Amoxic-Pot Clav 875-125Mg 1 tab PO BID 02/18/24 02/18/24 History [Augmentin 875-125] Escitalopram [Lexapro] 20 mg PO DAILY 02/18/24 02/18/24 History Omeprazole [PriLOSEC] 20 mg PO DAILY 02/18/24 02/18/24 History Potassium Chloride ER [K-Dur 10] 10 meq PO DAILY 02/18/24 02/18/24 History predniSONE [Deltasone] 40 mg PO DAILY 02/18/24 02/18/24 History Allergies Allergy/AdvReac Type Severity Reaction Status Date / Time No Known Allergies Allergy Verified 02/18/24 17:50 Physical Exam Vitals: Vital Signs Temp Pulse Resp BP Pulse Ox 02/19/24 08:48 98.9 F 91 20 94/61 100 02/19/24 05:48 99.1 F 80 20 107/80 98 02/19/24 04:48 85 16 97 02/18/24 18:55 98.3 F 94 20 110/78 93 L 02/18/24 17:50 22 02/18/24 17:21 98.1 F 90 22 118/80 98 Intake and Output 02/18/24 02/19/24 02/19/24 22:59 06:59 14:59 Other: Weight 111.13 kg GENERAL: BMI 40.8, reclining bed awake a bit tired. EYES: Pupils equal. Conjunctiva uma l. HEENT: External appearance of nose and ears normal, oral cavity grossly normal. The patient has respiratory stridor NECK: JVD not raised; masses not palpable. HEART: First and second heart sounds are normal; no edema. LUNGS: Diminished breath sounds along with scattered expiratory rhonchi and crackles ABDOMEN: Soft, nontender, liver spleen not palpable, no masses palpable. PSYCH: Alert and oriented x3; mood and affect uma l. MUSCULOSKELETAL:No Clubbing/cyanosis;muscles-grossly intact NEUROLOGICAL: Cranial nerves grossly intact; no facial asymmetry, power and sensation grossly intact. LYMPHATICS: No lymph nodes palpable in the axilla and neck INVESTIGATIONS, reviewed in the clinical context: Results - Laboratory Findings CBC and BMP: 02/18/24 17:54 02/18/24 17:54 PT/INR, D-dimer PT 10.5 sec (10.0-12.5) 02/18/24 20:20 INR 0.9 (<1.2) 02/18/24 20:20 D-Dimer 1.56 mg/L FEU (<0.60) H 02/18/24 20:20 Abnormal lab findings: Abnormal Labs 02/18/24 02/18/2402/17/24 17:54 17:54 17:54 WBC 18.3 H Hct 46.7 H Neutrophils # 16.0 H APTT D-Dimer Sodium 136 L Carbon Dioxide 21 L Glucose 137 H Plasma Lactic Acid Jam 2.4 H* AST 40 H C-Reactive Protein 1.1 H SARS-CoV-2 (PCR) 02/18/24 02/18/24 02/18/24 17:54 20:20 21:22 WBC Hct Neutrophils # APTT 21.7 L D-Dimer 1.56 H Sodium Carbon Dioxide Glucose Plasma Lactic Acid Jam 2.9 H* AST C-Reactive Protein SARS-CoV-2 (PCR) Detected A 02/19/24 00:44 WBC Hct Neutrophils # APTT D-Dimer Sodium Carbon Dioxide Glucose Plasma Lactic Acid Jam 2.2 H* AST C-Reactive Protein SARS-CoV-2 (PCR) - Diagnostic Findings Chest x-ray: image reviewed CT scan - chest: image reviewed Assessment and Plan Plan: Acute COVID-19 infection, this is the patient's second infection with COVID-19. Her initial infection was few years back. The patient has been symptomatic for almost a week. She has developed also groundglass bilateral pulmonary infiltrates which are concerning for viral pneumonia/COVID-19 related pneumonia. Acute hemoptysis, not characteristic of a COVID-19 infection/pneumonia. Rule out bleeding from an upper airway source including the cords of the supraglottic area. 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 She is outside the window for remdesivir. Obtain sputum Gram stain and culture Coagulation profile is adequate and there is no significant thrombocytopenia and the patient does not take any form of anticoagulants on outpatient basis. An ENT evaluation will be useful should there be ENT services in our hospital to evaluate this patient's upper airway. Meanwhile, we will going to review the CAT scan of the chest after the images are uploaded into the system and make further recommendations if needed. Resume home medications. Lifetime non-smoker
[2024-02-19] MEDS: ACETAMINOPHEN TAB 325 MG TAB PO PRN (20:22)
[2024-02-20] MEDS ORDERED: ALPRAZolam 0.5 MG TAB ONE (03:50)
[2024-02-20] MEDS ORDERED: ACETAMINOPHEN TAB 325 MG TAB ONE (03:50)
[2024-02-20] MEDS: LORazepam 0.5 MG TAB PO ONE (06:05)
[2024-02-20 10:04] VITALS: RESP 18
--- NOTE | 2024-02-20 14:22 | P.PN ---
Subjective Progress Note Date: 02/20/24 This is a 53-year-old female patient with known history of vocal cord malignancy diagnosed by ENT and the patient was treated by radiation therapy 2 years back and since her treatment, the patient has developed ongoing difficulties with shortness of breath and stridor. 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 The patient has been followed up by Dr. Chao and Dr. Leonardo. The patient started getting sick few days back. In fact her symptoms started approximately a week ago. She had flulike symptoms of increased congestion, shortness of breath, cold, chills, fever, increasing hoar seness, increasing shortness of breath and for that reason, she was seen at her family doctor's office and she was given a course of Augmentin and prednisone. Subsequently, she started having episodes hemoptysis and the patient accordingly was brought into the emergency department [facility]. CAT scan of the chest showed bilateral groundglass pulm infiltrates consistent with atypical p neumonia and the patient checked. Positive for COVID-19 infection. I was able to witness the mucus that the patient was coughing earlier. This was quite bloody consistent with hemoptysis. No epistaxis. Her white cell count is 18.3 with a hemoglobin 15.3 and a platelet count of 216. D-dimer is 1.56. Normal coagulation profile. Initial lactic acid was at 2.9 dropped down to 1.9. The BUN is 16 with a creatinine 0.59 and a sodium levels at 136 with a potassium level of 4.4 and a serum bicarb is at 21. LFTs are normal. The rest of the viral screen came back negative. The patient is currently on O2 at room air oxygen with a pulse ox of 98%. On 02/20/2024, I am seeing the patient for a follow-up. The patient continues to have episodes of hemoptysis. Noted she is COVID-19 positive. The patient was started on systemic steroids. The patient was also started on broad-spectrum antibiotics. I was able to review the CAT scan of the chest was done at [facility]. The findings were essentially consistent with diffuse bilateral groundglass pulmonary infiltrates and this is more consistent with COVID-19 infection. There are few areas of increased nodularity that needs to be followed up at a later stage. The CAT scan of the neck shows no significant abnormalities although there is some narrowing at the level of the glottic area/at the level of the vocal cords. The patient continues to be stridorous although less compared to yesterday. She remains on 3 days of oxygen by nasal cannula. No labs from today. As stated, she is COVID-19 positive. She remains on IV Rocephin. She remains on IV Solu-Medrol 60 mg every 6 hours. She remains on O2 at 3 L with a pulse ox of 97%. Objective - Vital Signs Vital signs: Vital Signs Temp 97.6 F 02/20/24 09:15 Pulse 80 02/20/24 14:00 Resp 18 02/20/24 14:00 BP 131/78 02/20/24 12:20 Pulse Ox 97 02/20/24 12:20 FiO2 Intake & Output 02/19/24 02/20/24 02/20/24 18:59 06:59 18:59 Intake Total 550 10 Balance 550 10 Weight 111.13 kg 112.5 kg Intake: IV 10 10 Invasive Line 1 10 10 Oral 540 Other: Voiding Method Toilet Toilet # Voids 2 - Exam GENERAL: BMI 40.8, reclining bed awake a bit tired. EYES: Pupils equal. Conjunctiva uma l. HEENT: External appearance of nose and ears normal, oral cavity grossly normal. The patient has respiratory stridor NECK: JVD not raised; masses not palpable. HEART: First and second heart sounds are normal; no edema. LUNGS: Diminished breath sounds along with scattered expiratory rhonchi and crackles ABDOMEN: Soft, nontender, liver spleen not palpable, no masses palpable. PSYCH: Alert and oriented x3; mood and affect uma l. MUSCULOSKELETAL:No Clubbing/cyanosis;muscles-grossly intact NEUROLOGICAL: Cranial nerves grossly intact; no facial asymmetry, power and sensation grossly intact. LYMPHATICS: No lymph nodes palpable in the axilla and neck INVESTIGATIONS, reviewed in the clinical context: - Labs CBC & Chem 7: 02/18/24 17:54 02/18/24 17:54 Labs: Microbiology - Last 24 Hours (Table) 02/18/24 17:30 Gram Stain - Preliminary Sputum Sputum Culture - Preliminary 02/18/24 17:54 Blood Culture - Preliminary Blood Assessment and Plan Plan: Acute COVID-19 infection, this is the patient's second infection with COVID-19. Her initial infection was few years back. The patient has been symptomatic for almost a week. She has developed also groundglass bilateral pulmonary infiltrates which are concerning for viral pneumonia/COVID-19 related pneumonia. Acute hemoptysis, not characteristic of a COVID-19 infection/pneumonia. Rule out bleeding from an upper airway source including the cords of the supraglottic area. 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 Patient remains on IV Rocephin. This presentation is not typical of COVID-19 infection. Consider tracheobronchitis with bloody mucus. Consider upper airway source of bleeding as the patient is known to have previous history of vocal cord cancer and she has received radiation therapy. CAT scan of the chest is consistent with diffuse groundglass pulmonary filtrates, and this is in agreement with COVID-19 pneumonia. CAT scan of the neck is not showing any acute abnormalities. Unable to do a bronchoscopy at this point due to concerns of glottic/supraglottic narrowing as the patient is known to have chronic stridor following her radiation therapy. Based on that, decided to proceed with conservative management of antibiotics and steroids and monitor progress. The patient will be monitored very closely in the hospital The patient will be supplemented with O2 should there be any significant desaturations The patient will be treated with IV steroids and the patient was started on IV Solu-Medrol. She is outside the window for remdesivir. Obtain sputum Gram stain and culture Resume home medications. Lifetime non-smoker
--- NOTE | 2024-02-20 16:19 | P.PN ---
Progress Note - Text Progress Note Date: 02/20/24 Chief Complaint: Coughing up blood Pleasant 53-year-old patient follows with Dr. Cervantes. 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 Had radiation treatment and local surgery. She did follow-up with /ENT at [facility] and [place]. Following the radiation she has had trouble narrowing of the upper airway. 2 weeks ago she developed cold-like symptoms. With mucus. Cough. Shortness of breath. Voice became hoarse. Yesterday she started coughing up some blood. Also had chills. She went to see her family doctor's office. She was put on prednisone and Augmentin. She did present to [facility] yesterday evening for which she was transferred here because of hemoptysis and possible need for bronchoscopy. She also tested positive for COVID. In the ER patient's at the bedside. February 20, 2024: Patient remains a bit short of breath. Having some hemoptysis. Spoke to the nurse to humidify the oxygen. Also gets coughing bouts. Told to have room temperature or warm liquids as opposed to ice cold liquids as the cold temperature may precipitate more coughing. Patient also to use incentive spirometry. Sit up in a chair. Present time no bronchoscopy. Discussed with Dr. Mei. Remains on steroids. Discussed with patient at the bedside. Had some stridor but better today Active Medications Acetaminophen (Acetaminophen Tab 325 Mg Tab) 650 mg PO Q6HR PRN PRN Reason: Mild Pain or Fever > 100.5 Last Admin: 02/20/24 12:24 Dose: 650 mg Hydrocodone Bitart/Acetaminophen (Hydrocodone/Apap 5-325mg 1 Each Tab) 1 each PO Q4HR PRN PRN Reason: Moderate Pain (Scale 4 to 6) Alprazolam (Alprazolam 0.5 Mg Tab) 0.5 mg PO BID PRN PRN Reason: Anxiety Escitalopram Oxalate (Escitalopram 20 Mg Tab) 20 mg PO DAILY [facility] Last Admin: 02/20/24 09:31 Dose: 20 mg Ceftriaxone Sodium 2 gm/ (Sodium Chloride) 50 mls @ 100 mls/hr IVPB Q24HR [facility]; Protocol Stop: 02/22/24 09: Last Admin: 02/20/24 09:31 Dose: 100 mls/hr Methylprednisolone Sodium Succinate (Methylprednisolone Sod Succi 125 Mg/2 Ml Vial) 60 mg IV Q6HR [facility] Last Admin: 02/20/24 12:21 Dose: 60 mg Metoprolol Succinate (Metoprolol Succinate (Er) 50 Mg Tab.Er.24h) 50 mg PO DAILY [facility] Last Admin: 02/20/24 09:31 Dose: 50 mg Miscellaneous Information (Pneumonia Protocol Utilized 1 Each Misc) 1 each PO ONCE PRN PRN Reason: Per Protocol Morphine Sulfate (Morphine Sulfate 4 Mg/Ml Syringe) 4 mg IV Q4HR PRN PRN Reason: Severe Pain (Scale 7 to 10) Naloxone HCl (Naloxone 0.4 Mg/Ml 1 Ml Vial) 0.2 mg IV Q2M PRN PRN Reason: Opioid Reversal Ondansetron HCl (Ondansetron 4 Mg/2 Ml Vial) 4 mg IVP Q8HR PRN PRN Reason: Nausea And Vomiting Last Admin: 02/18/24 20:18 Dose: 4 mg Pantoprazole Sodium (Pantoprazole 40 Mg Tablet) 40 mg PO DAILY [facility] Last Admin: 02/20/24 09:30 Dose: 40 mg Potassium Chloride (Potassium Chloride Er 10 Meq Tab.Er.Prt) 10 meq PO DAILY [facility] Last Admin: 02/20/24 12:21 Dose: 10 meq Triamterene/Hydrochlorothiazide (Triamterene-Hctz 37.5-25mg 1 Each Cap) 1 each PO DAILY [facility] Last Admin: 02/20/24 09:30 Dose: 1 each Social history: Does not smoke. Work at the [employer]. Alcohol occasionally. Physical examination: VITAL SIGNS: 98.3, 82, 18, 123 x 77, 98% on 3 L GENERAL: BMI 40.8, reclining bed awake a bit tired. EYES: Pupils equal. Conjunctiva uma l. HEENT: External appearance of nose and ears normal, oral cavity grossly normal. NECK: JVD not raised; masses not palpable. HEART: First and second heart sounds are normal; no edema. LUNGS: Respiratory rate increased, few scattered crackles. Some wheezing ABDOMEN: Soft, nontender, liver spleen not palpable, no masses palpable. PSYCH: Alert and oriented x3; mood and affect with anxious l. INVESTIGATIONS, reviewed in the clinical context: February 18, 2024: White count 18.3 hemoglobin 15.3 platelets 216 sodium 136 potassium 4.4 creatinine 0.59 Lactic acid 2.4, 2.9 COVID-19 PCR: Detected EKG tracing personally reviewed by me-normal sinus rhythm Testing from [facility]: CT scan chest: Scattered pulmonary nodules. Groundglass appearance Assessment and plan: -Acute hemoptysis. In the setting of acute COVID-19 pneumonitis. Likely from COVID-19.: Slow to respond Pulmonary following -Acute COVID-19, pneumonitis. 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 Currently getting steroids -Morbid obesity BMI 40.8 Weight loss measures -GERD Prilosec -Depression, anxiety Lexapro. Xanax as needed -Essential hypertension Maxide. Toprol-XL -Full code Discussed with patient . Dr. Mei. Continue steroids. Other treatment plan. Humidified oxygen. Up in a chair. Avoid iced cold liquids Past Medical History Past Medical History: Hyperlipidemia, Hypertension History of Any Multi-Drug Resistant Organisms: None Reported Past Surgical History: Section, Cholecystectomy, Tubal Ligation, Uterine Ablation Additional Past Surgical History / Comment(s): C/S x2, Past Anesthesia/Blood Transfusion Reactions: No Reported Reaction Smoking Status: Never smoker
[2024-02-20] MEDS: ALPRAZolam 0.5 MG TAB PO PRN (21:58)
[2024-02-21 07:23] LABS: Basophils % (A) 0 %; Eosinophils % (A) 0 %; HCT 38.7 % (34.0-46.0); HGB 13.4 gm/dL (11.4-16.0); Lymphocytes # (A) 1.2 k/uL (1.0-4.8); Lymphocytes % (A) 7 %; MCH 32.1 pg (25.0-35.0); MCHC 34.6 g/dL (31.0-37.0); Monocytes # (A) 0.7 k/uL (0-1.0); Monocytes % (A) 4 %; Neutrophils # (A) 16.3 k/uL (1.3-7.7); Neutrophils % (A) 89 %; Platelet Count 198 k/uL (150-450); RBC 4.16 m/uL (3.80-5.40); RDW 13.3 % (11.5-15.5); WBC 18.3 k/uL (3.8-10.6)
--- NOTE | 2024-02-21 09:25 | XR ---
EXAMINATION TYPE: XR chest 1V DATE OF EXAM: 02/21/2024 COMPARISON: NONE HISTORY: Pneumonia TECHNIQUE: Single frontal view of the chest is obtained. FINDINGS: There are diffuse fluffy infiltrates throughout the right lung and focally in the left upp er lobe. The findings are consistent with acute cardiopulmonary process possibly pneumonia. The heart and pulmonary vasculature are normal. There is no pneumothorax or pleural effusion. The osseous structures are intact IMPRESSION: Acute cardiopulmonary disease as described above. [facility], , 02/21/2024 9:22 AM
--- NOTE | 2024-02-21 14:36 | P.PN ---
Subjective Progress Note Date: 02/21/24 This is a 53-year-old female patient with known history of vocal cord malignancy diagnosed by ENT and the patient was treated by radiation therapy 2 years back and since her treatment, the patient has developed ongoing difficulties with shortness of breath and stridor. 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 The patient has been followed up by Dr. Chao and Dr. Leonardo. The patient started getting sick few days back. In fact her symptoms started approximately a week ago. She had flulike symptoms of increased congestion, shortness of breath, cold, chills, fever, increasing hoar seness, increasing shortness of breath and for that reason, she was seen at her family doctor's office and she was given a course of Augmentin and prednisone. Subsequently, she started having episodes hemoptysis and the patient accordingly was brought into the emergency department [facility]. CAT scan of the chest showed bilateral groundglass pulm infiltrates consistent with atypical p neumonia and the patient checked. Positive for COVID-19 infection. I was able to witness the mucus that the patient was coughing earlier. This was quite bloody consistent with hemoptysis. No epistaxis. Her white cell count is 18.3 with a hemoglobin 15.3 and a platelet count of 216. D-dimer is 1.56. Normal coagulation profile. Initial lactic acid was at 2.9 dropped down to 1.9. The BUN is 16 with a creatinine 0.59 and a sodium levels at 136 with a potassium level of 4.4 and a serum bicarb is at 21. LFTs are normal. The rest of the viral screen came back negative. The patient is currently on O2 at room air oxygen with a pulse ox of 98%. On 02/20/2024, I am seeing the patient for a follow-up. The patient continues to have episodes of hemoptysis. Noted she is COVID-19 positive. The patient was started on systemic steroids. The patient was also started on broad-spectrum antibiotics. I was able to review the CAT scan of the chest was done at [facility]. The findings were essentially consistent with diffuse bilateral groundglass pulmonary infiltrates and this is more consistent with COVID-19 infection. There are few areas of increased nodularity that needs to be followed up at a later stage. The CAT scan of the neck shows no significant abnormalities although there is some narrowing at the level of the glottic area/at the level of the vocal cords. The patient continues to be stridorous although less compared to yesterday. She remains on 3 days of oxygen by nasal cannula. No labs from today. As stated, she is COVID-19 positive. She remains on IV Rocephin. She remains on IV Solu-Medrol 60 mg every 6 hours. She remains on O2 at 3 L with a pulse ox of 97%. 02/21/2024, the patient continues to have episodes of hemoptysis. Sputum Gram stain and culture was obtained and the results are negative for any microbial growth. The ongoing hemoptysis concern especially the patient has significant stenosis in the glottic area and an ENT evaluation is crucial at this point in time. The white cell count is at 18 with a hemoglobin of 13.4 and a platelet count of 198. Troponins are negative. COVID-19 testing was positive. Procalcitonin was 0.06. The repeat chest x-ray that was done today showed diffuse bilateral pulmonary infiltrates right more than left consistent with interstitial pneumonia and this could be potentially related to viral pneumonia. There is diffuse fluffy infiltrates throughout the lungs right more than left specially in the right upper lobe.. Clinically, the patient is stable. The patient is afebrile and treated of oxygen by nasal cannula with a pulse ox of 99 to 100%. I think it is important for this patient to be evaluated by ENT to localize the site of hemoptysis as COVID-19 pneumonia is unlikely and are not known to cause hemoptysis. Objective - Vital Signs Vital signs: Vital Signs Temp 98.0 F 02/21/24 11:59 Pulse 72 02/21/24 11:59 Resp 18 02/21/24 11:59 BP 125/81 02/21/24 11:59 Pulse Ox 100 02/21/24 11:59 FiO2 Intake & Output 02/20/24 02/21/24 02/21/24 18:59 06:59 18:59 Intake Total 10 10 908 Balance 10 10 908 Weight 111.7 kg Intake: IV 10 10 10 Invasive Line 1 10 10 Invasive Line 3 10 Oral 898 Other: Voiding Method Toilet Toilet Toilet # Voids 3 1 1 - Exam GENERAL: BMI 40.8, reclining bed awake a bit tired. EYES: Pupils equal. Conjunctiva uma l. HEENT: External appearance of nose and ears normal, oral cavity grossly normal. The patient has respiratory stridor NECK: JVD not raised; masses not palpable. HEART: First and second heart sounds are normal; no edema. LUNGS: Diminished breath sounds along with scattered expiratory rhonchi and crackles ABDOMEN: Soft, nontender, liver spleen not palpable, no masses palpable. PSYCH: Alert and oriented x3; mood and affect uma l. MUSCULOSKELETAL:No Clubbing/cyanosis;muscles-grossly intact NEUROLOGICAL: Cranial nerves grossly intact; no facial asymmetry, power and sensation grossly intact. LYMPHATICS: No lymph nodes palpable in the axilla and neck INVESTIGATIONS, reviewed in the clinical context: - Labs CBC & Chem 7: 02/21/24 06:45 02/18/24 17:54 Labs: Abnormal Lab Results - Last 24 Hours (Table) 02/21/24 Range/Units 06:45 WBC 18.3 H (3.8-10.6) k/uL Neutrophils # 16.3 H (1.3-7.7) k/uL Microbiology - Last 24 Hours (Table) 02/18/24 17:30 Gram Stain - Final Sputum Sputum Culture - Final 02/18/24 17:54 Blood Culture - Preliminary Blood Assessment and Plan Plan: Acute COVID-19 infection, this is the patient's second infection with COVID-19. Her initial infection was few years back. The patient has been symptomatic for almost a week. She has developed also groundglass bilateral pulmonary infiltrates which are concerning for viral pneumonia/COVID-19 related pneumonia. Chest x-ray from today remains unchanged. The patient continues to have episodes of hemoptysis, unlikely to be related to COVID-19 infection/pneumonia. Will need an upper airway inspection especially with her previous history of vocal cord malignancy and radiation therapy. Exact cause for his hemoptysis is not clear to me at this point. Acute hemoptysis, not characteristic of a COVID-19 infection/pneumonia. Rule out bleeding from an upper airway source including the cords of the supraglottic area. History of vocal cord malignancy, treated by radiation therapy Chronic stridor related to supraglottic stenosis/scarring following radiation therapy to the vocal cord for malignancy Obesity with a BMI of 40 Chronic course secondary to above Chronic cellulitis secondary to above Hypertension Chronic anxiety Acid reflux Plan Continue IV Rocephin. As mentioned, the presentation with hemoptysis is not typical of COVID-19 infection. Consider tracheobronchitis with bloody mucus. Consider upper airway source of bleeding as the patient is known to have previous history of vocal cord cancer and she has received radiation therapy. CAT scan of the chest is consistent with diffuse groundglass pulmonary filtrates, and this is in agreement with COVID-19 pneumonia. CAT scan of the neck is not showing any acute abnormalities. Unable to do a bronchoscopy at this point due to concerns of glottic/supraglottic narrowing as the patient is known to have chronic s tridor following her radiation therapy. Based on that, decided to proceed with conservative management of antibiotics and steroids and monitor progress. The patient will be monitored very closely in the hospital The patient will be supplemented with O2 should there be any significant desaturations The patient will be treated with IV steroids and the patient was started on IV Solu-Medrol. She is outside the window for remdesivir. Sputum culture is negative Very important for this patient to undergo an ENT evaluation. Will consult Dr. Rosa. If unable to internal this patient, consider referring this patient to [facility] to be evaluated by Dr. Hussein Lifetime non-smoker
[2024-02-21] MEDS: methylPREDNISolone SOD SUCCI 40 MG/ML 1 ML VIAL IV SCH (15:58)
--- NOTE | 2024-02-21 16:16 | P.DS ---
Providers Date of admission: 02/18/24 18:04 Expected date of discharge: 02/21/24 Attending physician: Oneil Nguyen Consults: 02/18/24 18:15 Consult Physician Urgent Consulting Provider: Joseline Mei Consult Reason/Comments: Hemoptysis, pneumonitis Do you want consulting provider notified?: Yes Primary care physician: [facility] Hospital Course: Chief Complaint: Coughing up blood Pleasant 53-year-old patient follows with Dr. Cervantes. 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 Had radiation treatment and local surgery. She did follow-up with /ENT at [facility] and [place]. Following the radiation she has had trouble narrowing of the upper airway. 2 weeks ago she developed cold-like symptoms. With mucus. Cough. Shortness of breath. Voice became hoarse. Yesterday she started coughing up some blood. Also had chills. She went to see her family doctor's office. She was put on prednisone and Augmentin. She did present to [facility] yesterday evening for which she was transferred here because of hemoptysis and possible need for bronchoscopy. She also tested positive for COVID. In the ER patient's at the bedside. February 20, 2024: Patient remains a bit short of breath. Having some hemoptysis. Spoke to the nurse to humidify the oxygen. Also gets coughing bouts. Told to have room temperature or warm liquids as opposed to ice cold liquids as the cold temperature may precipitate more coughing. Patient also to use incentive spirometry. Sit up in a chair. Present time no bronchoscopy. Discussed with Dr. Mei. Remains on steroids. Discussed with patient at the bedside. Had some stridor but better today February 20: Patient continues to have hemoptysis. On 3 L nasal cannula. Hoarse voice. Dr. Mei called me this morning. Concerned about stridor getting worse and intubation. No ENT available in the hospital. Would consider transfers. I did not spoke to Dr. Andrea Rosa to who patient is known. He is out of town. He then referred me to Dr. Myke Perez-ENT from [facility]. With privileges at [facility]. I spoke to him. He accepted the patient as a consult to the above hospital. For review doing direct laryngoscopy to rule out any mass/local cause for bleeding. I did not spoke to the accepting internal medicine physician Dr. Cardozo who accepted the patient. Earlier in the day I spoke at length with the patient about why we are doing the transfer for higher level of care with no ENT available here. Total time spent today about over an hour with over 40 minutes of discussion. Chest x-ray shows scattered infiltrates. This could be underlying viral pneumonia. Active Medications Acetaminophen (Acetaminophen Tab 325 Mg Tab) 650 mg PO Q6HR PRN PRN Reason: Mild Pain or Fever > 100.5 Last Admin: 02/20/24 12:24 Dose: 650 mg Hydrocodone Bitart/Acetaminophen (Hydrocodone/Apap 5-325mg 1 Each Tab) 1 each PO Q4HR PRN PRN Reason: Moderate Pain (Scale 4 to 6) Alprazolam (Alprazolam 0.5 Mg Tab) 0.5 mg PO BID PRN PRN Reason: Anxiety Last Admin: 02/21/24 09:23 Dose: 0.5 mg Escitalopram Oxalate (Escitalopram 20 Mg Tab) 20 mg PO DAILY [facility] Last Admin: 02/21/24 08:47 Dose: 20 mg Ceftriaxone Sodium 2 gm/ (Sodium Chloride) 50 mls @ 100 mls/hr IVPB Q24HR [facility]; Protocol Stop: 02/22/24 09:29 Last Admin: 02/21/24 08:47 Dose: 100 mls/hr Methylprednisolone Sodium Succinate (Methylprednisolone Sod Succi 40 Mg/Ml 1 Ml Vial) 40 mg IV Q8HR [facility] Last Admin: 02/21/24 15:58 Dose: 40 mg Metoprolol Succinate (Metoprolol Succinate (Er) 50 Mg Tab.Er.24h) 50 mg PO DAILY [facility] Last Admin: 02/21/24 08:47 Dose: 50 mg Miscellaneous Information (Pneumonia Protocol Utilized 1 Each Misc) 1 each PO ONCE PRN PRN Reason: Per Protocol Morphine Sulfate (Morphine Sulfate 4 Mg/Ml Syringe) 4 mg IV Q4HR PRN PRN Reason: Severe Pain (Scale 7 to 10) Naloxone HCl (Naloxone 0.4 Mg/Ml 1 Ml Vial) 0.2 mg IV Q2M PRN PRN Reason: Opioid Reversal Ondansetron HCl (Ondansetron 4 Mg/2 Ml Vial) 4 mg IVP Q8HR PRN PRN Reason: Nausea And Vomiting Last Admin: 02/18/24 20:18 Dose: 4 mg Pantoprazole Sodium (Pantoprazole 40 Mg Tablet) 40 mg PO DAILY [facility] Last Admin: 02/21/24 08:47 Dose: 40 mg Potassium Chloride (Potassium Chloride Er 10 Meq Tab.Er.Prt) 10 meq PO DAILY [facility] Last Admin: 02/21/24 08:47 Dose: 10 meq Triamterene/Hydrochlorothiazide (Triamterene-Hctz 37.5-25mg 1 Each Cap) 1 each PO DAILY [facility] Last Admin: 02/21/24 08:47 Dose: 1 each Social history: Does not smoke. Work at the [employer]. Alcohol occasionally. Physical examination: VITAL SIGNS: 98.2, 75, 18, 1 4584, 100% on 3 L GENERAL: Up in a chair, eating lunch. EYES: Pupils equal. Conjunctiva uma l. HEENT: External appearance of nose and ears normal, oral cavity grossly normal. NECK: JVD not raised; masses not palpable. HEART: First and second heart sounds are normal; no edema. LUNGS: Respiratory rate increased, few scattered crackles. Some wheezing ABDOMEN: Soft, nontender, liver spleen not palpable, no masses palpable. PSYCH: Alert and oriented x3; mood and affect with anxious l. INVESTIGATIONS, reviewed in the clinical context: February 20: White count 18.3 hemoglobin 13.4 platelets 198. Procalcitonin 0.04 February 18, 2024: White count 18.3 hemoglobin 15.3 platelets 216 sodium 136 potassium 4.4 creatinine 0.59 Lactic acid 2.4, 2.9 COVID-19 PCR: Detected EKG tracing personally reviewed by me-normal sinus rhythm Testing from [facility]: CT scan chest: Scattered pulmonary nodules. Groundglass appearance Assessment and plan: -Acute hemoptysis. In the setting of acute COVID-19 pneumonitis. Likely from COVID-19.: Slow to respond Need to rule out the cause from [place] injure because of bleed given prior vocal cord cancer. Spoke to Dr. Andrea Rosa, our ENT local physician. He is out of town. With no other coverage available. [address]jeff Perez, who is accepted the patient as a sap bw consultant [place]. -Acute COVID-19, pneumonitis. 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 Cut back IV Solu-Medrol to 40 mg every 8 -Morbid obesity BMI 40.8 Weight loss measures -GERD Prilosec -Depression, anxiety Lexapro. Xanax as needed -Essential hypertension Maxide. Toprol-XL -Full code Continue current treatment plan. Pending transfer to [facility] for higher level of care. ENT services not available. For indirect laryngoscopy. Past Medical History Past Medical History: Hyperlipidemia, Hypertension History of Any Multi-Drug Resistant Organisms: None Reported Past Surgical History: Section, Cholecystectomy, Tubal Ligation, Uterine Ablation Additional Past Surgical History / Comment(s): C/S x2, Past Anesthesia/Blood Transfusion Reactions: No Reported Reaction Smoking Status: Never smoker Plan - Discharge Summary Discharge Rx Participant: No New Discharge Prescriptions: No Action Triamterene-Hctz 37.5-25Mg [Maxzide 37.5-25] 1 tab PO DAILY Metoprolol Succinate (ER) [Toprol Xl] 50 mg PO DAILY Potassium Chloride ER [K-Dur 10] 10 meq PO DAILY ALPRAZolam [Xanax] 0.5 mg PO BID PRN PRN Reason: Anxiety predniSONE [Deltasone] 40 mg PO DAILY Amoxic-Pot Clav 875-125Mg [Augmentin 875-125] 1 tab PO BID Omeprazole [PriLOSEC] 20 mg PO DAILY Escitalopram [Lexapro] 20 mg PO DAILY Discharge Medication List Metoprolol Succinate (ER) [Toprol Xl] 50 mg PO DAILY 08/14/18 [History] Triamterene-Hctz 37.5-25Mg [Maxzide 37.5-25] 1 tab PO DAILY 08/14/18 [History] ALPRAZolam [Xanax] 0.5 mg PO BID PRN 02/18/24 [History] Amoxic-Pot Clav 875-125Mg [Augmentin 875-125] 1 tab PO BID 02/18/24 [History] Escitalopram [Lexapro] 20 mg PO DAILY 02/18/24 [History] Omeprazole [PriLOSEC] 20 mg PO DAILY 02/18/24 [History] Potassium Chloride ER [K-Dur 10] 10 meq PO DAILY 02/18/24 [History] predniSONE [Deltasone] 40 mg PO DAILY 02/18/24 [History] Follow up Appointment(s)/Referral(s): Evin Cervantes MD [Primary Care Provider] - 1-2 days
[2024-02-21 20:10] VITALS: BP 137/85; PULSE 72; TEMP 98.4
== END 2024-02-21 22:15 | disposition short-term general hospital (02) | DRG 177 ==
LOC: EC 16:34 → 3SCARD 18:04
PROVIDERS: ADMIT Hospitalist; ATTEND Hospitalist
DX: U07.1 COVID-19 (principal); J12.82 Pneumonia due to coronavirus disease 2019; Z68.41 Body mass index [BMI] 40.0-44.9, adult; J84.9 Interstitial pulmonary disease, unspecified; R04.2 Hemoptysis; L03.90 Cellulitis, unspecified; R91.8 Other nonspecific abnormal finding of lung field; R09.02 Hypoxemia; E66.01 Morbid (severe) obesity due to excess calories; E78.5 Hyperlipidemia, unspecified; F32.A Depression, unspecified; F41.9 Anxiety disorder, unspecified; I10 Essential (primary) hypertension; K21.9 Gastro-esophageal reflux disease without esophagitis; Z85.21 Personal history of malignant neoplasm of larynx; Z79.899 Other long term (current) drug therapy; Z92.3 Personal history of irradiation
CPT/HCPCS: 71045; 80053; 83605; 83735; 84145; 85025; 85379; 85610; 85730; 86140; 87040; 87070; 87205; 87449; 87636; 93005; 94640; 94760; 96361; 96365; 96366; 96367; 96375; 99285